=== PATIENT | male | born 1985 | race Hispanic/Latino ===

== ENCOUNTER 2016-08-12 16:36 | Emergency (ER) | payer MEDICAID ==
[2016-08-12] MEDS ORDERED: PEN G BENZ 1.2M UNITS/2 ML SYR IM ONE (18:15)
== END 2016-08-12 18:50 | disposition home or self-care (01) ==
LOC: ER 16:36
DX: J10.1 Influenza due to other identified influenza virus with other respiratory manifestations (principal); Z87.891 Personal history of nicotine dependence
CPT/HCPCS: 87804; 87880; 96372